=== PATIENT | female | born 1995 | race Caucasian/White ===

== ENCOUNTER → 2017-01-30 09:31 | Outpatient (CLI) | payer BC | END | disposition home or self-care (01) | LOC: D.LAB 09:31 | DX: Z01.82 Encounter for allergy testing (principal) ==

== ENCOUNTER 2017-03-05 07:21 | Day surgery (SDC) | payer BC ==
--- NOTE | 2017-03-02 11:33 | HP ---
PATIENT: VIVIAN MOBLEY MEDICAL RECORD: [id number] ACCOUNT: [id number] [facility] 89 ADMISSION DATE: 03/05/17 HISTORY AND PHYSICAL EXAMINATION HISTORY OF PRESENT ILLNESS: Vivian is 21 years old. She has been having persistent problems with tonsillar hypertrophy and chronic pharyngitis. She is being admitted for tonsillectomy and adenoidectomy. PAST MEDICAL HISTORY: Otherwise negative. PAST SURGICAL HISTORY: Hip surgery in 2014. CURRENT MEDICATIONS: None. ALLERGIES: No known drug allergies. PHYSICAL EXAMINATION: GENERAL: Healthy-appearing, developmentally normal. EYES: Sclerae and conjunctivae are normal. EARS: Canals and TMs are normal. NOSE: No mass, polyps or drainage. ORAL CAVITY AND OROPHARYNX: A 3+ chronically infected appearing tonsils. NECK: No masses, no adenopathy. CHEST: Clear. CARDIOVASCULAR: Regular rate and rhythm, no murmur. EXTREMITIES: Normal. IMPRESSION: Tonsillar hypertrophy and chronic pharyngitis. PLAN: Tonsillectomy and adenoidectomy. TRANSINT:[id number] Voice Confirmation ID: [id number] DOCUMENT ID: [id number] YVETTE GROSS MD at 1133 CC: [id number] DICTATION DATE: 03/01/17 1554 RN CLINICAL DOCUMENTATION SPECIALIST: 03/01/17[address] [facility] [address] [place] [address]
[~2017-03-05] VITALS: Ht 157.5 cm; Wt 74.8 kg
[2017-03-05 09:14] VITALS: BP 109/78; Ht 157.5 cm; Wt 74.8 kg
[2017-03-05 09:21] LABS: HCG SERUM NEGATIVE (NEGATIVE)
--- NOTE | 2017-03-06 12:55 | OP ---
PATIENT NAME: SEEMA MOBLEY MEDICAL RECORD: [id number] :89 [facility] DATE: SURGEON: YVETTE SUÁREZ MD DATE OF OPERATION: 03/05/2017 PREOPERATIVE DIAGNOSIS: Chronic pharyngitis. POSTOPERATIVE DIAGNOSIS: Chronic pharyngitis. PROCEDURE: Tonsillectomy and adenoidectomy. SURGEON: Yvette Suárez MD ANESTHESIA: General orotracheal. BLOOD LOSS: 2 cc. SPECIMENS: Right and left tonsil. COMPLICATIONS: None. DISPOSITION: Recovery stable. PROCEDURE NOTE: She is brought to the operating room and placed in supine position, sedated and intubated by anesthesia. Eyes were taped. The table was turned 90 degrees. A head drapes applied and she was positioned for tonsillectomy. Using a headlight, a Genoveva-Rick mouth gag was carefully inserted and elevated on a towel on her chest. The palate was examined and palpated. It was normal. A red rubber catheter was placed through the right side of the nose into the pharynx and grasped with tonsil clamp to retract the soft palate. Using a mirror, the nasopharynx was examined. Suction cautery on a setting of 35 was used to ablate and suction the adenoid pad with no significant bleeding. The choanae and eustachian orifices were normal bilaterally. The red rubber catheter was let down and removed. The right tonsil was grasped at the superior pole with a straight Allis clamp. Spatula tip cautery on a setting of 9 was used to dissect out the tonsil along its capsule, preserving the anterior and posterior tonsillar pillars. The left tonsil was removed in the same fashion. Then, both sides of the nose were irrigated with saline. The pharynx was suctioned. Tonsillar fossae were agitated. Suction cautery on a setting of 20 was used to control minimal oozing. With the field clean and dry, she was awakened, extubated, and transported to recovery in good condition. No complications. TRANSINT:[id number] Voice Confirmation ID: [id number] DOCUMENT ID: [id number] YVETTE SUÁREZ MD at 1255 CC: [id number] DICTATION DATE: 03/05/17 114 ASIC DESIGN ENGINEER: 03/05/172101 [facility] 03/05/17 [facility] [address] [place] [id number]
== END 2017-03-05 12:45 | disposition home or self-care (01) ==
LOC: D.OPS 07:21 → D.PAN 08:30 → D.OPS 09:45 → D.PAN 12:45
PROVIDERS: Otolaryngology
DX: J31.2 Chronic pharyngitis (principal)